=== PATIENT | female | born 1960 | race African-American/Black ===

== ENCOUNTER 2017-09-02 00:43 | Emergency (ER) | payer MEDICAID ==
[~2017-09-02] VITALS: Ht 165.1 cm; Wt 80.7 kg
--- NOTE | 2017-09-02 01:00 | NUR ---
TO BED 3 A 57 YO FEMALE PATIENT BB FAMILY FROM HOME C/O "WHEEZING/SOB X1 WEEK." VSS. NAD NOTED. SKIN WARM AND DRY. PLACED ON MONITOR AND CONT PULSE OX. COMFORT MEASURES RENDERED.
--- NOTE | 2017-09-02 01:09 | NUR ---
XR AT BEDSIDE.
[2017-09-02] MEDS ORDERED: ALBUTEROL FS 2.5 MG/3 ML VIAL.NEB ONE (01:22)
[2017-09-02] MEDS ORDERED: IPRATROPIUM NEB FS 0.5 MG/2.5 ML AMPUL.NEB ONE (01:22)
[2017-09-02] MEDS ORDERED: IPRATROPIUM NEB FS 0.5 MG/2.5 ML AMPUL.NEB NEB ONE (01:30)
[2017-09-02] MEDS ORDERED: ALBUTEROL FS 2.5 MG/0.5 ML VIAL.NEB NEB ONE (01:30)
--- NOTE | 2017-09-02 01:32 | NUR ---
ongoing breathing treatment.
--- NOTE | 2017-09-02 02:49 | NUR ---
Patient discharged to home in stable condition. Written and verbal after care instructions given. Patient verbalizes understanding of instruction. Patient is ambulatory with steady gait. nad noted. reports feeling better after breathing treatment. vss. no further complaints .
[2017-09-02 02:50] VITALS: BP 140/74
== END 2017-09-02 02:50 | disposition home or self-care (01) ==
LOC: ER 00:47
DX: J98.01 Acute bronchospasm (principal); Z88.6 Allergy status to analgesic agent; Z88.5 Allergy status to narcotic agent
CPT/HCPCS: 71045; 94640; 99283; A4606; Z7610

== ENCOUNTER 2018-07-08 19:04 | Emergency (ER) | payer MEDICAID ==
[~2018-07-08] VITALS: Ht 167.6 cm; Wt 77.1 kg
[2018-07-08 19:31] VITALS: BP 134/81
== END 2018-07-08 20:38 | disposition home or self-care (01) ==
LOC: ER 19:06
DX: S91.332A Puncture wound without foreign body, left foot, initial encounter (principal); Z90.710 Acquired absence of both cervix and uterus; Z88.6 Allergy status to analgesic agent; Z88.5 Allergy status to narcotic agent; Z60.2 Problems related to living alone; W22.8XXA Striking against or struck by other objects, initial encounter; Y93.89 Activity, other specified; Y92.89 Other specified places as the place of occurrence of the external cause; Y99.8 Other external cause status
CPT/HCPCS: 73630-TC

== ENCOUNTER 2018-10-29 23:22 | Emergency (ER) | payer MEDICAID ==
[~2018-10-29] VITALS: Ht 160 cm; Wt 76.7 kg
[2018-10-29 23:29] VITALS: BP 156/98
[2018-10-29] MEDS ORDERED: predniSONE 20 MG TABLET ONE (23:55)
[2018-10-30] MEDS ORDERED: predniSONE 20 MG TABLET PO ONE
[2018-10-30] MEDS ORDERED: ALBUTEROL FS 2.5 MG/3 ML VIAL.NEB NEB ONE
[2018-10-30] MEDS ORDERED: IPRATROPIUM NEB FS 0.5 MG/2.5 ML AMPUL.NEB NEB ONE
[2018-10-30] MEDS ORDERED: ALBUTEROL FS 2.5 MG/3 ML VIAL.NEB ONE (00:03)
[2018-10-30] MEDS ORDERED: IPRATROPIUM NEB FS 0.5 MG/2.5 ML AMPUL.NEB ONE (00:03)
== END 2018-10-30 00:25 | disposition home or self-care (01) ==
LOC: ER 23:24
DX: J45.901 Unspecified asthma with (acute) exacerbation (principal); Z90.710 Acquired absence of both cervix and uterus; Z88.6 Allergy status to analgesic agent; Z88.5 Allergy status to narcotic agent; Z60.2 Problems related to living alone
CPT/HCPCS: 94640; 99283; J7512

== ENCOUNTER 2019-07-07 22:52 | Emergency (ER) | payer MEDICAID ==
[~2019-07-07] VITALS: Ht 165.1 cm; Wt 77.1 kg
[2019-07-07 23:30] VITALS: BP 138/96
--- NOTE | 2019-07-07 23:30 | NUR ---
PT CAME INTO ER BED 9 C/O "FEELING COLD INSIDE" EVEN IF SHE IS IN A WARM ENVIRONMENT FOR 4x DAYS. PT ALSO HAS A POSTERIOR LEFT THIGH PAIN THAT SHOOTS UP TO HER LOWER BACK AND HAS BEEN ONGOING FROM TIME TO TIME, DID NOT STATE WHEN IT OCCURRED. PT DENIES FEVER, NAUSEA, VOMITING, COUGHING, SNEEZING. AAOX4. NO SOB. BREATHING EVENLY AND UNLABORED. CONNECTED TO MONITOR.
--- NOTE | 2019-07-07 23:35 | NUR ---
URINE COLLECTED AND SENT TO LAB.
--- NOTE | 2019-07-07 23:44 | NUR ---
SEEN AND EXAMINED BY ADRIANNE DUKES
--- NOTE | 2019-07-07 23:53 | NUR ---
PATIENT ENDORSES PAIN, BUT DENIES ANY PAIN MEDICATION AT THIS TIME.
[2019-07-07 23:54] LABS: APPEARANCE,URINE Clear (CLEAR); BILIRUBIN,URINE Negative (NEGATIVE); BLOOD, URINE Small Ery/uL (NEGATIVE); COLOR,URINE Yellow (YELLOW); KETONES,URINE Negative (NEGATIVE); LEUKOCYTE ESTERASE ,URINE Negative (NEGATIVE); NITRITE, URINE Negative (NEGATIVE); PH,URINE 5.5 (5.0-8.0); PROTEIN,URINE Negative (NEGATIVE); UGLUCOSE Negative (NEGATIVE); UROBILINOGEN,URINE 0.2 EU/dL (0.2)
[2019-07-08 00:21] LABS: BACTERIA,URINE Rare /HPF (None Seen); SQUAMOUS EPITHELIAL CELL,UR Few /HPF (None Seen); WBC,URINE NONE SEEN /HPF (0-3)
== END 2019-07-08 00:24 | disposition home or self-care (01) ==
LOC: ER 22:53
DX: M54.5 Low back pain (principal); Z90.710 Acquired absence of both cervix and uterus; Z88.6 Allergy status to analgesic agent; Z88.5 Allergy status to narcotic agent; Z60.2 Problems related to living alone
CPT/HCPCS: 81000-TC

== ENCOUNTER 2019-08-06 22:45 | Emergency (ER) | payer MEDICAID ==
[~2019-08-06] VITALS: Ht 162.6 cm; Wt 74.4 kg
[2019-08-06 22:58] VITALS: BP 148/99
[2019-08-06] MEDS ORDERED: IPRATROPIUM NEB FS 0.5 MG/2.5 ML AMPUL.NEB NEB ONE (23:30)
[2019-08-06] MEDS ORDERED: ALBUTEROL FS 2.5 MG/3 ML VIAL.NEB NEB ONE (23:30)
[2019-08-06] MEDS ORDERED: ALBUTEROL FS 2.5 MG/3 ML VIAL.NEB ONE (23:39)
[2019-08-06] MEDS ORDERED: IPRATROPIUM NEB FS 0.5 MG/2.5 ML AMPUL.NEB ONE (23:39)
== END 2019-08-07 01:37 | disposition home or self-care (01) ==
LOC: ER 22:46
DX: J98.01 Acute bronchospasm (principal); Z90.710 Acquired absence of both cervix and uterus; Z88.6 Allergy status to analgesic agent; Z88.5 Allergy status to narcotic agent; Z88.8 Allergy status to other drugs, medicaments and biological substances; Z60.2 Problems related to living alone

== ENCOUNTER 2020-08-16 08:56 | Emergency (ER) | payer MEDICAID ==
[~2020-08-16] VITALS: Ht 167.6 cm; Wt 76.2 kg
[2020-08-16] MEDS ORDERED: predniSONE 20 MG TABLET PO ONE (09:30)
[2020-08-16] MEDS ORDERED: ALBUTEROL FS 2.5 MG/3 ML VIAL.NEB NEB ONE (09:30)
[2020-08-16] MEDS ORDERED: predniSONE 20 MG TABLET ONE (09:30)
--- NOTE | 2020-08-16 09:30 | NUR ---
patient came in to the er c/o SOB, wheezing, itchy eyes, and headache. On room, air, breathing evenly, 02 sat 96%. connected to the monitor and pulse ox. kept comfortable, will continue to monitor accordingly.
[2020-08-16] MEDS ORDERED: ALBUTEROL FS 2.5 MG/3 ML VIAL.NEB ONE (09:34)
[2020-08-16 10:12] VITALS: BP 145/81
--- NOTE | 2020-08-16 10:13 | NUR ---
Patient discharged to home in stable condition. Written and verbal after care instructions given. Patient verbalizes understanding of instruction.
== END 2020-08-16 10:13 | disposition home or self-care (01) ==
LOC: ER 08:58
DX: J98.01 Acute bronchospasm (principal); I10 Essential (primary) hypertension; Z98.890 Other specified postprocedural states; Z88.6 Allergy status to analgesic agent; Z88.5 Allergy status to narcotic agent; Z60.2 Problems related to living alone
CPT/HCPCS: 94640; 99283; J7512

== ENCOUNTER 2021-08-22 19:42 | Emergency (ER) | payer MEDICAID ==
[~2021-08-22] VITALS: Ht 167.6 cm; Wt 83.5 kg
[2021-08-22 20:13] VITALS: BP 153/72
[2021-08-22] MEDS ORDERED: predniSONE 20 MG TABLET ONE (20:27)
[2021-08-22] MEDS ORDERED: ALBUTEROL FS 2.5 MG/3 ML VIAL.NEB NEB ONE (20:30)
[2021-08-22] MEDS ORDERED: IPRATROPIUM NEB FS 0.5 MG/2.5 ML AMPUL.NEB NEB ONE (20:30)
[2021-08-22] MEDS ORDERED: predniSONE 20 MG TABLET PO ONE (20:30)
--- NOTE | 2021-08-22 20:40 | NUR ---
RT CALLED, AT BEDSIDE.
[2021-08-22] MEDS ORDERED: ALBUTEROL FS 2.5 MG/3 ML VIAL.NEB ONE (20:44)
[2021-08-22] MEDS ORDERED: IPRATROPIUM NEB FS 0.5 MG/2.5 ML AMPUL.NEB ONE (20:44)
[2021-08-22] MEDS ORDERED: PRED20TA PO (21:11)
--- NOTE | 2021-08-22 21:16 | NUR ---
Patient discharged to home in stable condition. Written and verbal after care instructions given. Patient verbalizes understanding of instruction.
== END 2021-08-22 21:42 | disposition home or self-care (01) ==
LOC: ER 19:43
DX: J45.909 Unspecified asthma, uncomplicated (principal); I10 Essential (primary) hypertension; Z98.890 Other specified postprocedural states; Z88.6 Allergy status to analgesic agent; Z88.5 Allergy status to narcotic agent; Z79.899 Other long term (current) drug therapy
CPT/HCPCS: 93005; 94640; 99283; J7512

== ENCOUNTER 2021-08-29 20:13 | Emergency (ER) | payer MEDICAID ==
[~2021-08-29] VITALS: Ht 170.2 cm; Wt 81.6 kg
[~2021-08-29 20:13] MED LIST: PRED20TA PO
[2021-08-29 20:41] VITALS: BP 138/85
--- NOTE | 2021-08-29 20:46 | NUR ---
BIB SELF C/O TROUBLE BREATHING X 1 WEEK, AAOX4, BREATHINV EVEN AND UNLABORED, NOT IN RESP DISTRESS. AWAITING MD FOR EVAL. POX 98% ON RA.
[2021-08-29] MEDS ORDERED: FLUT100D INH (22:25)
--- NOTE | 2021-08-29 23:26 | NUR ---
Patient discharged to home in stable condition. Written and verbal after care instructions given. Patient verbalizes understanding of instruction.
== END 2021-08-29 23:30 | disposition home or self-care (01) ==
LOC: ER 20:13
DX: J45.998 Other asthma (principal); I10 Essential (primary) hypertension; Z98.890 Other specified postprocedural states; Z88.6 Allergy status to analgesic agent; Z88.5 Allergy status to narcotic agent; Z79.899 Other long term (current) drug therapy
CPT/HCPCS: 71045-TC

== ENCOUNTER 2021-09-05 14:11 | Emergency (ER) | payer MEDICAID ==
[~2021-09-05] VITALS: Ht 167.6 cm; Wt 81.2 kg
[~2021-09-05 14:11] MED LIST changes: +FLUT100D INH
--- NOTE | 2021-09-05 14:18 | NUR ---
C/O WHEEZING, PT WAS HERE ON SUNDAY FOR THE SAME CHIEF COMPLAINT. PT IS 96% ON ROOM ARM. WARM BLANKET PROVIDED. DR EUBANKS AT BEDSIDE
[2021-09-05] MEDS ORDERED: FLUT12AE5 INH (15:07)
[2021-09-05] MEDS ORDERED: AZIT250T13 PO (15:07)
--- NOTE | 2021-09-05 15:13 | NUR ---
Patient discharged to home in stable condition. Written and verbal after care instructions given. Patient verbalizes understanding of instruction.
[2021-09-05 15:19] VITALS: BP 139/96
== END 2021-09-05 15:20 | disposition home or self-care (01) ==
LOC: ER 14:12
DX: J45.909 Unspecified asthma, uncomplicated (principal); I10 Essential (primary) hypertension; Z98.890 Other specified postprocedural states; Z88.6 Allergy status to analgesic agent; Z88.5 Allergy status to narcotic agent; Z79.899 Other long term (current) drug therapy

== ENCOUNTER 2022-03-30 17:43 | Emergency (ER) | payer MEDICAID, OTHER ==
[~2022-03-30] VITALS: Ht 162.6 cm; Wt 77.1 kg
[~2022-03-30 17:43] MED LIST changes: +AZIT250T13 PO; +FLUT12AE5 INH
[2022-03-30 17:59] VITALS: BP 124/77
[2022-03-30] MEDS ORDERED: CLIN300C12 PO (18:10)
--- NOTE | 2022-03-30 18:13 | NUR ---
Patient discharged to home in stable condition. Written and verbal after care instructions given. Patient verbalizes understanding of instruction.
== END 2022-03-30 18:14 | disposition home or self-care (01) ==
LOC: ER 17:50
DX: L73.1 Pseudofolliculitis barbae (principal); I10 Essential (primary) hypertension; Z90.710 Acquired absence of both cervix and uterus; Z88.5 Allergy status to narcotic agent; Z88.6 Allergy status to analgesic agent

== ENCOUNTER 2022-04-04 17:03 | Emergency (ER) | payer OTHER ==
[~2022-04-04] VITALS: Ht 170.2 cm; Wt 77.1 kg
[~2022-04-04 17:03] MED LIST changes: +CLIN300C12 PO
[2022-04-04 17:12] VITALS: BP 159/94
--- NOTE | 2022-04-04 17:15 | NUR ---
The patient bibs c/o upset stomach while taking oral antibiotic. Rates stomach discomfort 09/08. Will continue to monitor the patient.
[2022-04-04] MEDS ORDERED: CEPH500C2 PO (17:17)
[2022-04-04] MEDS ORDERED: SULF1TAB48 PO (17:17)
[2022-04-04] MEDS ORDERED: FAMO-131 PO (17:17)
[2022-04-04] MEDS ORDERED: FAMOTIDINE (20 MG) 20 MG TABLET ONE (17:18)
[2022-04-04] MEDS ORDERED: MAG HYDROX/AL HYDROX/SIMETH 30 ML UDC ONE (17:18)
[2022-04-04] MEDS ORDERED: LIDOCAINE VISCOUS 2% UD 15 ML UDC ONE (17:18)
[2022-04-04] MEDS ORDERED: LIDOCAINE VISCOUS 2% UD 15 ML UDC MM ONE (17:30)
[2022-04-04] MEDS ORDERED: MAG HYDROX/AL HYDROX/SIMETH 30 ML UDC PO ONE (17:30)
[2022-04-04] MEDS ORDERED: FAMOTIDINE (20 MG) 20 MG TABLET PO ONE (17:30)
--- NOTE | 2022-04-04 17:31 | NUR ---
Patient discharged to home in stable condition. Written and verbal after care instructions given. Patient verbalizes understanding of instruction.
== END 2022-04-04 17:32 | disposition home or self-care (01) ==
LOC: ER 17:08
DX: R10.13 Epigastric pain (principal); Z51.81 Encounter for therapeutic drug level monitoring

== ENCOUNTER 2022-04-04 22:55 | Emergency (ER) | payer OTHER ==
[~2022-04-04] VITALS: Ht 162.6 cm; Wt 77.1 kg
[~2022-04-04 22:55] MED LIST changes: +CEPH500C2 PO; +FAMO-131 PO; +SULF1TAB48 PO
[2022-04-04 23:54] VITALS: BP 132/64
--- NOTE | 2022-04-05 00:03 | NUR ---
Patient discharged to home in stable condition. Written and verbal after care instructions given. Patient verbalizes understanding of instruction. Pt ambulatory with a steady gait
== END 2022-04-05 00:04 | disposition home or self-care (01) ==
LOC: ER 23:01
DX: L23.89 Allergic contact dermatitis due to other agents (principal); T36.1X5A Adverse effect of cephalosporins and other beta-lactam antibiotics, initial encounter; I10 Essential (primary) hypertension; Z90.710 Acquired absence of both cervix and uterus; Z88.6 Allergy status to analgesic agent; Z88.8 Allergy status to other drugs, medicaments and biological substances; Z79.899 Other long term (current) drug therapy; Y92.89 Other specified places as the place of occurrence of the external cause

== ENCOUNTER 2022-09-07 19:54 | Emergency (ER) | payer OTHER ==
[~2022-09-07] VITALS: Ht 165.1 cm; Wt 81.6 kg
[~2022-09-07 19:54] MED LIST changes: -CLIN300C12 PO
[2022-09-07 21:32] VITALS: BP 127/89
--- NOTE | 2022-09-07 21:32 | NUR ---
BIBSELF FROM HOME C/O H/A ON & OFF SINCE JUNE. TAKES TYLENOL WITH NO RELIEF. POSSIBLE S/E FROM [employer]DR[employer]. PT A/OX4. TOLERATING R/A WELL WITH NO RESP DISTRESS. SAFETY MEASURES IN PLACE. CONNECTED PT TO POX AND MONITOR.
[2022-09-07] MEDS ORDERED: SUMATRIPTAN SUCCINATE 6 MG/0.5 ML VIAL SQ ONE ×2 (22:22→22:30)
[2022-09-07] MEDS ORDERED: METOCLOPRAMIDE HCL 10 MG/2 ML VIAL ONE (22:22)
[2022-09-07] MEDS ORDERED: METOCLOPRAMIDE HCL 10 MG/2 ML VIAL IV ONE (22:30)
[2022-09-07] MEDS ORDERED: IBUPROFEN 400 MG TABLET PO ONE (22:30)
[2022-09-07] MEDS ORDERED: IV NS 0.9% 1,000 ML BAG IV ONE (22:30)
[2022-09-07] MEDS ORDERED: IBUPROFEN 400 MG TABLET ONE (22:40)
--- NOTE | 2022-09-07 22:51 | NUR ---
Patient discharged to home in stable condition. Written and verbal after care instructions given. Patient verbalizes understanding of instruction. PT ambulatory with a steady gait
== END 2022-09-07 22:57 | disposition home or self-care (01) ==
LOC: ER 19:58
DX: G89.29 Other chronic pain (principal); R51.9 Headache, unspecified; I10 Essential (primary) hypertension; Z90.710 Acquired absence of both cervix and uterus; Z88.8 Allergy status to other drugs, medicaments and biological substances; Z79.899 Other long term (current) drug therapy
CPT/HCPCS: J2765; J3030

== ENCOUNTER 2022-11-16 00:49 | Emergency (ER) | payer OTHER ==
[~2022-11-16] VITALS: Ht 165.1 cm; Wt 84.6 kg
--- NOTE | 2022-11-16 01:20 | NUR ---
BIBS FROM HOME COMPLAINING OF LEFT HAND PAIN X2 WEEKS. -TRAUMA, - SWELLING, - REDNESS. PATIENT IS AAOX4. ABLE TO MAKE NEEDS KNOWN. PLACED COMFORTABLY IN BED.
--- NOTE | 2022-11-16 01:30 | NUR ---
SEEN BY DR MULLINS AT BEDSIDE
--- NOTE | 2022-11-16 01:50 | NUR ---
XRAY DONE AT BEDSIDE
[2022-11-16 02:47] VITALS: BP 144/95
== END 2022-11-16 02:49 | disposition home or self-care (01) ==
LOC: ER 00:50
DX: G56.02 Carpal tunnel syndrome, left upper limb (principal); I10 Essential (primary) hypertension; Z90.49 Acquired absence of other specified parts of digestive tract; Z79.899 Other long term (current) drug therapy; Z88.6 Allergy status to analgesic agent; Z88.5 Allergy status to narcotic agent; Z88.1 Allergy status to other antibiotic agents
CPT/HCPCS: 73130-TC

== ENCOUNTER 2023-09-29 19:47 | Emergency (ER) | payer OTHER ==
[~2023-09-29] VITALS: Ht 167.6 cm; Wt 85.7 kg
[2023-09-29 20:43] VITALS: TEMP 98.8
[2023-09-29] MEDS ORDERED: ACETAMINOPHEN 325 MG TABLET ONE (21:36)
[2023-09-29] MEDS: ACETAMINOPHEN 325 MG TABLET PO ONE (21:38)
[2023-09-29 23:00] VITALS: BP 158/84; O2SAT 98
== END 2023-09-29 23:00 | disposition home or self-care (01) ==
LOC: ER 19:51
DX: S86.811A Strain of other muscle(s) and tendon(s) at lower leg level, right leg, initial encounter (principal); Z79.899 Other long term (current) drug therapy; I10 Essential (primary) hypertension; Z90.49 Acquired absence of other specified parts of digestive tract; Z88.5 Allergy status to narcotic agent; Z88.1 Allergy status to other antibiotic agents; W19.XXXA Unspecified fall, initial encounter; Y93.89 Activity, other specified; Y92.89 Other specified places as the place of occurrence of the external cause; Y99.8 Other external cause status
CPT/HCPCS: 73600-TC; 93971-TC

== ENCOUNTER 2023-10-12 23:07 | Emergency (ER) | payer OTHER ==
[~2023-10-12] VITALS: Ht 172.7 cm; Wt 99.8 kg
[2023-10-13 04:53] VITALS: BP 139/91; TEMP 98.2; O2SAT 99
== END 2023-10-13 04:53 | disposition home or self-care (01) ==
LOC: EDUNIT# 23:07 → ER 23:18
DX: M79.18 Myalgia, other site (principal); I10 Essential (primary) hypertension; Z79.899 Other long term (current) drug therapy; Z90.49 Acquired absence of other specified parts of digestive tract; Z88.5 Allergy status to narcotic agent; Z88.1 Allergy status to other antibiotic agents